=== PATIENT | female | born 1965 | race Native Hawaiian/Other Pacific Islander ===

== ENCOUNTER 2016-09-24 22:04 | Outpatient (CLI) | payer BC | END 2016-09-24 22:15 | disposition short-term general hospital (02) | LOC: AMB 22:04 | DX: R20.8 Other disturbances of skin sensation (principal); R53.1 Weakness; E86.0 Dehydration | CPT/HCPCS: A0425; A0427 ==

== ENCOUNTER 2016-09-24 22:20 | Emergency (ER) | payer BC ==
[~2016-09-24] VITALS: Ht 160 cm; Wt 86.6 kg
[2016-09-24 23:12] LABS: PLATELET COUNT 282 K/uL (152-353)
[2016-09-24 23:20] LABS: POTASSIUM 3.7 mmol/L (3.6-5.2); SODIUM 136 mmol/L (136-145)
[2016-09-25 00:45] VITALS: BP 157/84; TEMP 98.5
== END 2016-09-25 00:45 | disposition home or self-care (01) ==
LOC: ED 22:20
PROVIDERS: Emergency Medicine
DX: F41.9 Anxiety disorder, unspecified (principal)
CPT/HCPCS: 36415; 80053; 85027; 96374; 99284; J2060

== ENCOUNTER 2018-03-18 12:58 | Outpatient (CLI) | payer BC | END 2018-03-18 22:29 | disposition home or self-care (01) | LOC: NM 12:58 | DX: Z12.31 Encounter for screening mammogram for malignant neoplasm of breast (principal); R10.11 Right upper quadrant pain | CPT/HCPCS: A9537 ==

== ENCOUNTER 2019-04-23 10:13 | Outpatient (CLI) | payer BC | END 2019-04-23 23:29 | disposition home or self-care (01) | LOC: LAB 10:13 → CT 10:13 | DX: R20.2 Paresthesia of skin (principal) | CPT/HCPCS: 85379 ==

== ENCOUNTER 2019-04-26 01:45 | Emergency (ER) | payer BC ==
[~2019-04-26] VITALS: Ht 160 cm; Wt 68.5 kg
[2019-04-26 03:03] LABS: PLATELET COUNT 312 K/uL (152-353)
[2019-04-26 03:04] LABS: POTASSIUM 3.9 mmol/L (3.6-5.2)
[2019-04-26 03:59] VITALS: BP 148/91; TEMP 98.3
== END 2019-04-26 03:59 | disposition home or self-care (01) ==
LOC: ED 01:45
PROVIDERS: Emergency Medicine
DX: T78.40XA Allergy, unspecified, initial encounter (principal); F41.9 Anxiety disorder, unspecified
CPT/HCPCS: 80053; 82550; 82553; 84484; 85027; 93005; 96372; 99283; J2060; J2930

== ENCOUNTER 2019-04-29 07:54 | Outpatient (CLI) | payer BC | END 2019-04-29 19:37 | disposition home or self-care (01) | LOC: MRI 07:54 | DX: R90.82 White matter disease, unspecified (principal) | CPT/HCPCS: A9576 ==

== ENCOUNTER 2019-06-27 07:54 | Outpatient (CLI) | payer BC | END 2019-06-27 20:48 | disposition home or self-care (01) | LOC: LAB 07:54 | PROVIDERS: Psychiatry & Neurology Neurology | DX: R90.82 White matter disease, unspecified (principal); F41.9 Anxiety disorder, unspecified; G43.109 Migraine with aura, not intractable, without status migrainosus; G43.909 Migraine, unspecified, not intractable, without status migrainosus | CPT/HCPCS: 36415; 80061; 83090; 85651; 86038; 86618 ==

== ENCOUNTER 2019-09-07 08:17 | Outpatient (CLI) | payer BC | END 2019-09-07 19:13 | disposition home or self-care (01) | LOC: MRI 08:17 | DX: R90.82 White matter disease, unspecified (principal); G43.109 Migraine with aura, not intractable, without status migrainosus; G43.909 Migraine, unspecified, not intractable, without status migrainosus | CPT/HCPCS: 36415; 82565; 84520; A9576 ==

== ENCOUNTER 2019-11-03 09:56 | Outpatient (CLI) | payer BC | END 2019-11-03 19:07 | disposition home or self-care (01) | LOC: MAMMO 09:56 | DX: Z12.31 Encounter for screening mammogram for malignant neoplasm of breast (principal) ==

== ENCOUNTER 2020-08-25 07:44 | Outpatient (CLI) | payer BC | END 2020-08-25 20:02 | disposition home or self-care (01) | LOC: US 07:44 | PROVIDERS: ATTEND Nurse Practitioner Family | DX: R10.11 Right upper quadrant pain (principal) ==

== ENCOUNTER 2021-07-20 11:42 | Outpatient (CLI) | payer BC, OTHER | END 2021-07-20 19:10 | disposition home or self-care (01) | LOC: RAD 11:42 | PROVIDERS: ATTEND Nurse Practitioner Family | DX: U07.1 COVID-19 (principal) ==

== ENCOUNTER 2022-08-08 08:15 | Outpatient (CLI) | payer BC | END 2022-08-08 19:19 | disposition home or self-care (01) | LOC: MAMMO 08:15 | PROVIDERS: ATTEND Family Medicine | DX: Z12.31 Encounter for screening mammogram for malignant neoplasm of breast (principal); Z79.890 Hormone replacement therapy ==